=== PATIENT | male | born 1995 ===

== ENCOUNTER 2019-04-19 20:51 | Inpatient (IN) | payer OTHER ==
[~2019-04-19] VITALS: Ht 180.3 cm; Wt 90.0 kg
[2019-04-19 22:08] LABS: BASOPHILS PERCENT AUTO 1 % (0-2); EOSINOPHILS PERCENT AUTO 0 % (0-6); Hematocrit 45.8 % (37.0-53.0); Hemoglobin 15.5 g/dL (13.5-17.5); IMMATURE GRAN ABSOLUTE AUTO 0.01 K/mm3 (0.00-0.10); IMMATURE GRAN PERCENT AUTO 0 % (0-1); LYMPHOCYTES PERCENT AUTO 33 % (21-46); MONOCYTES ABSOLUTE AUTO 0.71 K/mm3 (0.16-1.47); MONOCYTES PERCENT AUTO 9 % (4-13); Mean Corpuscular HGB 33.3 pg (26.0-34.0); Mean Corpuscular HGB Conc 33.8 g/dL (31.5-36.5); Mean Corpuscular Volume 99 fL (80-100); Mean Platelet Volume 9.3 fL (9.1-12.4); NEUTROPHILS PERCENT AUTO 56 % (41-73); Platelet Count 274 K/mm3 (150-400); RDW Coefficient Variation 12.9 % (11.7-14.2); Red Blood Cell Count 4.65 M/mm3 (4.30-5.90); White Blood Cell Count 7.82 K/mm3 (4.00-11.30)
[2019-04-19 22:25] LABS: Alanine Aminotransfer (ALT/SGP 303 U/L (12-78); Albumin, Blood 3.9 g/dL (3.4-5.0); Albumin/Globulin Ratio 0.9 (0.8-1.8); Alk Phos 154 U/L (50-136); Anion Gap 23 mmol/L (6-16); Aspartate Aminotrans (AST/SGOT 636 U/L (12-37); Blood Urea Nitrogen 17 mg/dL (8-24); Bun/Creatinine Ratio 12.5 (12.0-20.0); CO2, Blood 13 mmol/L (21-32); Calcium, Blood 8.5 mg/dL (8.5-10.1); Chloride, Blood 104 mmol/L (98-108); Creatinine, Blood 1.36 mg/dL (0.60-1.20); Globulin, Blood 4.2 g/dL (2.2-4.0); Glomerular Filtration Rate >60 (60-); Glucose, Blood 215 mg/dL (70-99); Magnesium, Blood 1.8 mg/dL (1.6-2.4); Potassium, Blood 4.2 mmol/L (3.5-5.5); Sodium, Blood 140 mmol/L (136-145); Total Protein, Blood 8.1 g/dL (6.4-8.2)
[2019-04-20 00:19] LABS: Creatine Kinase MB 3.5 ng/mL (0.0-3.6); Creatine Kinase MB Index 0.8 (0.0-4.0)
[2019-04-20 00:31] LABS: Base Excess Venous -7.1 mmol/L; Bicarbonate Venous 19.4 mmol/L (24.0-30.0); PCO2 Venous 34.7 mmHg (38-42); PO2 Venous 180 mmHg (38-42); pH Blood Venous 7.34 (7.34-7.37)
[2019-04-20 00:48] LABS: U Amphetamine Screen Not Detected; U Barbituate Screen Not Detected; U Benzodiazapine Screen Not Detected; U Buprenorphine Screen Not Detected; U Cannabinoids Screen Not Detected; U Cocaine Screen Not Detected; U Methadone Screen Not Detected; U Methamphetamine Screen Not Detected; U Opiates Screen Not Detected; U Oxycodone Screen Not Detected; U Phencyclidine Screen Not Detected; U Propoxyphene Screen Not Detected
--- NOTE | 2019-04-20 02:25 | NUR ---
ADMIT PT ARRIVES INTUBATED AND SEDATED S/P SUSPECTED OD ON UNKNOWN SUBSTANCE. CURRENT VENT SETTINGS OF AC16/450/5/35%. PT OPENS EYES SPONTANEOUSLY BUT DOES NOT FOLLOW ANY COMMANDS AND IS RESTLESS, ATTEMPTING TO SIT UP IN BED, SHAKING HEAD BACK AND FORTH AND PULLING ON RESTRAINTS. PT'S GT ANAYELI IN ROOM REPORTING PT'S DAD EDWIN IS [facility]NR[facility] FROM [facility]. PLAN TO INITIATE ADMIT ORDERS, DR MCCARTY CONSULTED. PROPOFOL INITIALLY AT 30MCG/KG/MIN AT ARRIVAL, INCREASED TO 50MCG/KG/MIN, BICARB GTT WO AND NS 200ML/HR X 2 LITERS.
[2019-04-20 03:38] LABS: PCO2 Arterial 37.5 mmHg (35-45); PO2 Arterial 153 mmHg (80-100); pH Blood Arterial 7.43 (7.35-7.45)
[2019-04-20 04:04] LABS: Anion Gap 11 mmol/L (6-16); Blood Urea Nitrogen 16 mg/dL (8-24); Bun/Creatinine Ratio 12.6 (12.0-20.0); CO2, Blood 24 mmol/L (21-32); Calcium, Blood 8.1 mg/dL (8.5-10.1); Chloride, Blood 109 mmol/L (98-108); Creatinine, Blood 1.27 mg/dL (0.60-1.20); Glomerular Filtration Rate >60 (60-); Glucose, Blood 102 mg/dL (70-99); Potassium, Blood 4.2 mmol/L (3.5-5.5); Sodium, Blood 144 mmol/L (136-145)
--- NOTE | 2019-04-20 06:08 | NUR ---
SHIFT SUMMARY PT REMAINS INTUBATED-SETTINGS AT AC16/450/5/30%. SEDATION VIA PROPOFOL AT 50MCG/KG/MIN AND VERSED AT 10MG/HR. WITH ANY STIMULATION PT ATTEMPTS TO SIT UP AND SHAKES HEAD VIOLENTLY BACK AND FORTH. PT DOES NOT FOLLOW ANY COMMANDS. OG TO LIS WITH BILE COLORED SECRETIONS, FC DRAINING YELLOW WITH A LARGE AMOUNT OF SEDIMENT PRESENT WITH A TOTAL OF 450 FOR SHIFT. BP STABLE, ECG SHOWS SR IN THE 80-90'S AND O2 SATS >95%.
[2019-04-20 10:32] LABS: BASOPHILS ABSOLUTE AUTO 0.03 K/mm3 (0.00-0.23); BASOPHILS PERCENT AUTO 0 % (0-2); EOSINOPHILS ABSOLUTE AUTO 0.01 K/mm3 (0.00-0.68); EOSINOPHILS PERCENT AUTO 0 % (0-6); Hematocrit 36.7 % (37.0-53.0); Hemoglobin 12.5 g/dL (13.5-17.5); IMMATURE GRAN ABSOLUTE AUTO 0.01 K/mm3 (0.00-0.10); IMMATURE GRAN PERCENT AUTO 0 % (0-1); LYMPHOCYTES PERCENT AUTO 22 % (21-46); MONOCYTES ABSOLUTE AUTO 0.59 K/mm3 (0.16-1.47); MONOCYTES PERCENT AUTO 9 % (4-13); Mean Corpuscular HGB 33.2 pg (26.0-34.0); Mean Corpuscular HGB Conc 34.1 g/dL (31.5-36.5); Mean Corpuscular Volume 97 fL (80-100); Mean Platelet Volume 9.5 fL (9.1-12.4); NEUTROPHILS ABSOLUTE AUTO 4.67 K/mm3 (1.96-9.15); NEUTROPHILS PERCENT AUTO 69 % (41-73); Platelet Count 158 K/mm3 (150-400); RDW Coefficient Variation 13.6 % (11.7-14.2); RDW Standard Deviation 48.9 fL (35.1-46.3); Red Blood Cell Count 3.77 M/mm3 (4.30-5.90); White Blood Cell Count 6.81 K/mm3 (4.00-11.30)
--- NOTE | 2019-04-20 10:44 | NUR ---
BEGINNING OF SHIFT Assumed care of pt at 0700 with Kena CASH. Bedside report received from Verna CASH. Pt sedated with 40 mcg/kg/min propofol and 10 mg/hr versed. Pt on ventilator AC 16, Vt 450, FiO2 30% and PEEP 5. Small amounts of thin, clear sputum from in-line suction. Lungs clear, dim in bases. Sinus rhythm per monitor, with rate in 70s. ABD soft, nontender, nondistended. Clamped OG tube in place. Temp alonzo catheter draining yellow urine with sediment. Scattered bruising noted. Skin overall C/D/I. No edema noted. Pt became agitated during suctioning. Agitation increased with oral care. Propofol increased to 45 mcg/kg/min. Pt continued to be agitated, thrashing in bed and gagging on ET tube. Dr Colindres notified. Orders given for fentanyl. 50 mcg of fentanyl given and propofol increased to 55 mcg/kg/min. Pt calmed down; propofol decreased to 50 mcg/kg/min. This RN called poison control center to discuss pt's case. Spoke to Ernesto. Recommendations given for aggressive supportive care, follow up CMP, and aspirin, tylenol, and alcohol levels. Also recommended avoiding use of haldol. Recommendations given to Dr Colindres, who entered new orders for pt. Pt's father at bedside at 0730. Updated on plan of care. Pt's friend, who was with the patient prior to admit, visited pt. Told this RN that the patient took "Three hits of acid, a couple beers, and drank some Emergen-C". He also stated that the pt "started vomiting soon after taking the acid and then fell asleep on the couch". This RN updated Dr Colindres. Plans to reduce sedation and evaluate potential for extubation.
[2019-04-20 10:50] LABS: Acetaminophen, Random 6.5 ug/mL (10.0-30.0); Salicylate <1.7 mg/dL (2.8-20.0)
[2019-04-20 10:55] LABS: Alanine Aminotransfer (ALT/SGP 232 U/L (12-78); Albumin, Blood 2.8 g/dL (3.4-5.0); Albumin/Globulin Ratio 0.9 (0.8-1.8); Alk Phos 77 U/L (50-136); Anion Gap 7 mmol/L (6-16); Aspartate Aminotrans (AST/SGOT 564 U/L (12-37); Bilirubin, Total 1.2 mg/dL (0.1-1.0); Blood Urea Nitrogen 14 mg/dL (8-24); Bun/Creatinine Ratio 14.6 (12.0-20.0); CO2, Blood 26 mmol/L (21-32); Calcium, Blood 7.6 mg/dL (8.5-10.1); Chloride, Blood 111 mmol/L (98-108); Creatinine, Blood 0.96 mg/dL (0.60-1.20); Globulin, Blood 3.1 g/dL (2.2-4.0); Glomerular Filtration Rate >60 (60-); Glucose, Blood 92 mg/dL (70-99); Sodium, Blood 144 mmol/L (136-145)
[2019-04-20 10:58] LABS: Total Protein, Blood 5.9 g/dL (6.4-8.2)
--- NOTE | 2019-04-20 12:10 | NUR ---
UPDATE Dr Colindres rounded on patient. This RN updated provider on current sedation and patient condition. Plan to continue titrating down sedation.
--- NOTE | 2019-04-20 15:54 | NUR ---
UPDATE / EXTUBATION Propofol titrated down to 15 mcg/kg/min. Pt awoke; pulled at restraints and tongued at ET tube. This RN was able to verbally redirect and calm patient. Pt able to follow commands. RT Neeta notified. Pt passed spontaneous breathing trial. Extubated at [address] Colindres. OG tube also removed at this time. SpO2 99% on room air. Soft wrist restraints removed. Pt able to state name and birthday, but speech slurred. By 1545, speech more clear. Pt awake, visiting with family in room. Tolerated ice chips and water without coughing, gagging, or choking. Pt remains on room air.
--- NOTE | 2019-04-20 19:15 | NUR ---
ASSUMED CARE PT SUPINE IN BED WITH MULTIPLE FAMILY MEMBERS IN ROOM. PT IS AWAKE AND ALERT TO SELF, TIME AND LOCATION BUT WILL MUMBLE INAPPROPRIATE WORDS AT TIMES AND IS RESTLESS AND FORGETFUL. PT'S MOTHER IN ROOM, REPORTS PT HAD A SIMILAR EPISODE WITH PREVIOUS LSD USE, "HE WENT UNCONSCIOUS IMMEDIATELY AND SPENT TIME IN ICU." FAMILY ALSO CONCERNED THAT PT WILL NOT BE MENTALLY CLEAR ENOUGH FOR DISCHARGE TOMORROW. VSS, ECG SHOWS SR, O2 SATS 90-100 DEPENDENT ON MOVEMENT/ACTIVITY. NS AT 100ML/HR. BED ALARM ON AND BED IN LOW POSITION, DISCUSSED CALLING FOR ASSISTANCE TO GET OOB OVERNIGHT/SAFETY CONCERNS W/ PT AND FAMILY.
--- NOTE | 2019-04-20 19:30 | NUR ---
SUMMARY No acute changes since last note. Pt sat up in chair for dinner. Pt weak and mobilizes with one person moderate assist. Bed alarms and tab alarms required as pt attempts to mobilize independently. Pt has remained on room air. No events per heart monitor. Bedside report given to oncoming RNVerna.
[2019-04-21 03:32] LABS: BASOPHILS ABSOLUTE AUTO 0.03 K/mm3 (0.00-0.23); BASOPHILS PERCENT AUTO 1 % (0-2); EOSINOPHILS ABSOLUTE AUTO 0.06 K/mm3 (0.00-0.68); EOSINOPHILS PERCENT AUTO 1 % (0-6); Hematocrit 38.6 % (37.0-53.0); Hemoglobin 12.7 g/dL (13.5-17.5); IMMATURE GRAN ABSOLUTE AUTO 0.01 K/mm3 (0.00-0.10); IMMATURE GRAN PERCENT AUTO 0 % (0-1); LYMPHOCYTES ABSOLUTE AUTO 1.64 K/mm3 (0.84-5.20); LYMPHOCYTES PERCENT AUTO 28 % (21-46); MONOCYTES ABSOLUTE AUTO 0.52 K/mm3 (0.16-1.47); MONOCYTES PERCENT AUTO 9 % (4-13); Mean Corpuscular HGB 32.2 pg (26.0-34.0); Mean Corpuscular HGB Conc 32.9 g/dL (31.5-36.5); Mean Corpuscular Volume 98 fL (80-100); Mean Platelet Volume 9.6 fL (9.1-12.4); NEUTROPHILS ABSOLUTE AUTO 3.65 K/mm3 (1.96-9.15); NEUTROPHILS PERCENT AUTO 62 % (41-73); Platelet Count 142 K/mm3 (150-400); RDW Coefficient Variation 13.5 % (11.7-14.2); RDW Standard Deviation 48.5 fL (35.1-46.3); Red Blood Cell Count 3.94 M/mm3 (4.30-5.90); White Blood Cell Count 5.91 K/mm3 (4.00-11.30)
[2019-04-21 03:53] LABS: Alanine Aminotransfer (ALT/SGP 237 U/L (12-78); Albumin, Blood 2.7 g/dL (3.4-5.0); Albumin/Globulin Ratio 0.8 (0.8-1.8); Alk Phos 81 U/L (50-136); Anion Gap 7 mmol/L (6-16); Aspartate Aminotrans (AST/SGOT 656 U/L (12-37); Bilirubin, Indirect 0.7 mg/dL (0.1-0.7); Bilirubin, Total 1.7 mg/dL (0.1-1.0); Blood Urea Nitrogen 11 mg/dL (8-24); Bun/Creatinine Ratio 11.1 (12.0-20.0); CO2, Blood 26 mmol/L (21-32); Calcium, Blood 7.7 mg/dL (8.5-10.1); Chloride, Blood 111 mmol/L (98-108); Creatinine, Blood 0.99 mg/dL (0.60-1.20); Globulin, Blood 3.2 g/dL (2.2-4.0); Glomerular Filtration Rate >60 (60-); Glucose, Blood 117 mg/dL (70-99); Phosphorus, Blood 2.2 mg/dL (2.5-4.9); Potassium, Blood 3.2 mmol/L (3.5-5.5); Sodium, Blood 144 mmol/L (136-145); Total Protein, Blood 5.9 g/dL (6.4-8.2)
--- NOTE | 2019-04-21 06:07 | NUR ---
SHIFT SUMMARY NO ACUTE EVENTS OVERNIGHT. PT REMAINS ALERT BUT WILL OCCASIONALLY HAVE EPISODES WHERE HE IS CONFUSED. LAST NIGHT HE ASKED "IF THERE IS A LUNAR EVENT THAT WE CAN GO SEE," AND "CLARA WANTS A CRACKER," AFTER WAKING UP. PT REDIRECTABLE AND COOPERATIVE WITH CARE. VSS, ECG SHOWS SR AND O2 SATS MID 90'S ON RA. NS OF 100ML/HR ON STAND-BY WHILE KPHOS INFUSES FOR K+ OF 3.2 AND PHOS OF 2.2. PT HAS HAD 2 VOIDS THIS SHIFT OF DARK ORANGE URINE FOR A TOTAL OF 650ML. PT DID REPORT HAVING NUMBNESS AND TINGLING TO RIGHT HAND FINGERS, WRIST REMAINS SWOLLEN AND PT REPORTS IT IS "TENDER." BED ALARM ON, BED IN LOW POSITION AND CALL LIGHT IN PT'S RT HAND.
--- NOTE | 2019-04-21 09:43 | NUR ---
PT AWAKE, ALERT, AND ORIENTED THIS AM. SLOW TO ANSWERS SOME QUESTIONS, SOME CHILD-LIKE BEHAVIOR NOTED; LAUGHS AT INCIDENT AND BEHAVIOR, IMPULSIVE, FORGETFUL. PT OVERALL PLEASANT AND COOPERATIVE. SBA TO CHAIR, UNSTEADY GAIT, POOR HAND COORDINATION. HANDS SWOLLEN 2ND TO PULLING ON RESTRAINTS WHILE IN ED. PT FACE PUFFY, LEFT EYE HAS SOME BRUISING. PT USING URINAL. URINE COLOR AND QUANTITY IMPROVING. PT TAKING IN PO VERY WELL. PT'S FATHER IS AT BEDSIDE. DR JOHNSON IN TO SEE PT THIS. PLAN FOR PT TO GO HOME TODAY, PT'S FATHER WITH STAY WITH HIM.
--- NOTE | 2019-04-21 10:00 | NUR ---
PT SUCCESSFULLY AMBULATED SBA AROUND ICU UNIT. PT ABLE TO WALK, STILL SLIGHTLY UNSTEADY GAIT. PT AND FAMILY INSTRUCTED THAT HE IS TO HAVE ASSISTANCE WHEN UP AND MOVING. PT AND FAMILY BOTH COMFORTABLE WITH THIS.
--- NOTE | 2019-04-21 11:03 | NUR ---
PT DC'D FROM ICU TO HOME AT 1050. FAMILY WILL BE STAYING WITH PT TO WATCH OVER HIM FOR THE NEXT 24-48 HOURS. PT AND FAMILY GIVEN VERBAL AND WRITTEN DC INSTRUCTIONS WITH CLEAR UNDERSTANDING. PT AND FAMILY INSTRUCTED TO CALL FOR ANY QUESTIONS OR CONCERNS. REFERRAL PLACED WITH [facility] FOR NEW PCP, THEY ARE TO CALL PT MONDAY FOR FOLLOW APPOINTMENT. NO RX. NO HOME MEDS. INSTRUCTED TO SEE PROVIDER IF PT DEVLOPS JAUNDICE, LOW U/O, ABD PAIN, NAUSEA, VOMITING PT'S LIVER ENZYMES ARE ELEVATED. TO CALL OR SEE PROVIDER FOR NEW DIZZINESS OR HEADACHE HIS BP WERE SOMEWHAT HYPERTENSIVE. INFORMATION PROVIDED FOR SUNSTANCE ABUSE.
== END 2019-04-21 10:49 | disposition home or self-care (01) | DRG 917 ==
LOC: ER 20:51 → ICUE 04-20 02:33 → ICUW 04-20 02:39 → ICUE 04-20 02:41
PROVIDERS: Emergency Medicine; Internal Medicine Critical Care Medicine; ADMIT Hospitalist
PROC: 0BH18EZ Insertion of Endotracheal Airway into Trachea, Via Natural or Artificial Opening Endoscopic (ICD-10-PCS; principal; 2019-04-19)
PROC: 5A1935Z Respiratory Ventilation, Less than 24 Consecutive Hours (ICD-10-PCS; 2019-04-19)
DX: T40.8X1A Poisoning by lysergide [LSD], accidental (unintentional), initial encounter (principal); G92 Toxic encephalopathy; J96.90 Respiratory failure, unspecified, unspecified whether with hypoxia or hypercapnia; E87.2 Acidosis; N17.9 Acute kidney failure, unspecified; R53.83 Other fatigue; F17.210 Nicotine dependence, cigarettes, uncomplicated; R56.9 Unspecified convulsions
CPT/HCPCS: 31500; 31720; 36415; 36600; 51702; 70450; 71045; 76705; 80048; 80053; 82248; 82550; 82553; 82803; 83735; 84100; 85025; 93005; 93010; 94002; 94003; 96372-59; 96374-59; 96376-59; 99291-25; 99292; C9113; G0480; J0696; J1650; J2060; J2250; J2704; J3010; J7030; J7060; J7120